=== PATIENT | female | born 1940 | race African-American/Black ===

== ENCOUNTER 2022-05-16 11:54 | Emergency (ER) | payer OTHER ==
[~2022-05-16] VITALS: Ht 162.6 cm; Wt 99.8 kg
[2022-05-16 11:55] VITALS: BP_SYST 138
--- NOTE | 2022-05-16 12:11 | NUR ---
ER at bedside examining patient.
--- NOTE | 2022-05-16 12:15 | NUR ---
pt EVARISTO soares from home for medical clearance to be transfered to [facility]. pt is awake, alert and verbally responisve. per pt son, pt has history of dementia, when asked about history pt denies any medical history. pt is calm and cooperative. denies any pain or discomfort. safety measures in place. pt on monitor technician. son at bedside. no acute distress noted. breathing even and unlabored.
[2022-05-16 12:44] LABS: BASOPHILS # (AUTO) 0.1 K/uL (0.0-0.2); BASOPHILS % (AUTO) 0.7 % (0.0-2.0); EOSINOPHILS # (AUTO) 0.1 K/uL (0.0-0.4); EOSINOPHILS % (AUTO) 1.6 % (0.0-4.0); HEMATOCRIT 42.5 % (36-48); HEMOGLOBIN 14.3 g/dL (12.0-16.0); LYMPHOCYTES # (AUTO) 1.5 K/uL (1.0-5.5); LYMPHOCYTES % (AUTO) 20.8 % (20.5-51.5); MEAN CORPUSCULAR HEMOGLOBIN 31 pg (27-31); MEAN CORPUSCULAR HGB CONC 34 % (32-36); MEAN CORPUSCULAR VOLUME 93 fL (79.0-98.0); MONOCYTES # (AUTO) 0.4 K/uL (0.0-1.0); MONOCYTES % (AUTO) 5.3 % (1.7-9.3); NEUTROPHILS # (AUTO) 5.3 K/uL (1.8-7.7); NEUTROPHILS % (AUTO) 71.6 % (40.0-70.0); PLATELET COUNT (AUTO) 180 K/uL (130-430); RED BLOOD CELL COUNT(AUTO) 4.55 MIL/uL (4.2-6.2); RED CELL DISTRIBUTION WIDTH 12.7 % (9.0-15.0); WHITE BLOOD COUNT (AUTO) 7.4 K/uL (4.8-10.8)
[2022-05-16 13:13] LABS: ANION GAP 5 (5-15); CALCIUM 8.8 mg/dL (8.4-11.0); CHLORIDE 98 mmol/L (98-107); CREATININE 0.72 mg/dL (0.55-1.30); GLUCOSE 331 mg/dL (70-99); UREA NITROGEN, BLOOD 12 mg/dL (8-21)
[2022-05-16 13:18] LABS: ALANINE AMINOTRANSFERASE 13 U/L (12-78); ALBUMIN 2.7 g/dL (3.4-4.8); ASPARTATE AMINOTRANSFERASE 11 U/L (10-37); TOTAL BILIRUBIN 0.5 mg/dL (0.0-1.0)
--- NOTE | 2022-05-16 13:55 | NUR ---
PT IN POSITION OF COMFORT. NO ACUTE DISTRESS NOTED. BREATHING EVEN AND UNLABORED. PT DENIES ANY PAIN OR DISCOMFORT, SAFETY MEASURES IN PLACE. NO CHANGES AT THIS TIME
--- NOTE | 2022-05-16 14:45 | NUR ---
BILATERAL NARES SWABBED FOR COVID AND SENT TO LAB
--- NOTE | 2022-05-16 15:33 | NUR ---
THAI PASCUAL WAS CALLED AND LEFT VOICEMAIL TO CALL BACK, PT READY FOR CALL BACK.
--- NOTE | 2022-05-16 15:52 | NUR ---
SPOKE WITH PT SON FRANC. SAYS HE WILL ARANGE TRANSPORT TO [facility].
--- NOTE | 2022-05-16 16:20 | NUR ---
spoke with son lambert and informed RN that transportation should arrive to [facility] within the next hour to be transferred to [facility]
--- NOTE | 2022-05-16 18:08 | NUR ---
MEAL TRAY PROVIDED FOR PT
--- NOTE | 2022-05-16 19:43 | NUR ---
Transport company here to take pt. Awake and alert. No distress
--- NOTE | 2022-05-16 19:45 | NUR ---
Patient given written and verbal discharge instructions and verbalizes understanding. ER MD discussed with patient the results and treatment provided. Patient in stable condition. ID arm band removed. Patient educated on pain management and to follow up with PMD. Pain Scale 0. Opportunity for questions provided and answered. Transport company to take pt to [place]
[2022-05-16 19:48] VITALS: BP_SYST 129
== END 2022-05-16 19:48 | disposition home or self-care (01) ==
LOC: SED 11:54
DX: Z00.8 Encounter for other general examination (principal); E11.9 Type 2 diabetes mellitus without complications; Z79.899 Other long term (current) drug therapy; Z20.822 Contact with and (suspected) exposure to COVID-19
CPT/HCPCS: 36415; 71045; 80053; 85025; 93005; 99285

== ENCOUNTER 2023-01-24 16:09 | Emergency (ER) | payer OTHER, MEDICAID ==
[~2023-01-24] VITALS: Ht 162.6 cm; Wt 94.3 kg
[2023-01-24 16:19] VITALS: BP_SYST 172; PULSE 70; RESP 19; TEMP 97.2; O2SAT 97
[2023-01-24 21:48] VITALS: BP_SYST 143; PULSE 74; O2SAT 94
[2023-01-24 23:58] VITALS: RESP 18; TEMP 97.4
== END 2023-01-25 ==
LOC: SED 16:09
DX: R53.1 Weakness (principal); R51.9 Headache, unspecified; R07.9 Chest pain, unspecified; E11.9 Type 2 diabetes mellitus without complications; I10 Essential (primary) hypertension; Z79.899 Other long term (current) drug therapy
CPT/HCPCS: 70450-TC; 76376; 99284